=== PATIENT | male | born 1945 | race Caucasian/White ===

== ENCOUNTER → 2020-08-16 | Outpatient (CLI) | payer OTHER | END | disposition home or self-care (01) | LOC: OIH 10:49 | PROVIDERS: ATTEND Internal Medicine | DX: I10 Essential (primary) hypertension (principal) | CPT/HCPCS: 71046 ==

== ENCOUNTER → 2023-02-20 | Outpatient (CLI) | payer OTHER | END | disposition home or self-care (01) | LOC: RAH 14:02 | PROVIDERS: ATTEND Internal Medicine | DX: R41.3 Other amnesia (principal) | CPT/HCPCS: 70450 ==

== ENCOUNTER → 2023-12-23 | Outpatient (CLI) | payer OTHER | END | disposition home or self-care (01) | LOC: OIH 16:21 | PROVIDERS: ATTEND Internal Medicine Gastroenterology | DX: R05.3 Chronic cough (principal); I77.810 Thoracic aortic ectasia | CPT/HCPCS: 71046 ==

== ENCOUNTER → 2025-04-20 | Outpatient (CLI) | payer OTHER ==
--- NOTE | 2025-04-21 01:45 | HMCIMG ---
EXAM: CR Thoracic Spine, 2 View. CLINICAL HISTORY: THORACIC RADICULOPATHY COMPARISON: None provided. FINDINGS: BONES: No acute fracture or aggressively appearing osseous lesion. DISCS / DEGENERATIVE CHANGES: Diffuse multilevel degenerative changes in the form of anterior and lateral bridging osteophyte formation throughout the thoracic spine. Mild intervertebral disc space narrowing with associated endplate sclerosis in the lower thoracic spine. These findings are compatible with degenerative spondylosis. SOFT TISSUES: The paraspinal soft tissue lines are unremarkable. The visualized lungs are clear. MISCELLANEOUS: Visualization of the upper thoracic spine is limited on the lateral view by overlying structures. IMPRESSION: 1. No acute osseous injury. 2. Multilevel degenerative changes of the thoracic spine, most pronounced in the lower thoracic region. /[place]
--- NOTE | 2025-04-21 01:48 | HMCIMG ---
EXAM: CR Cervical spine, 2 or 3 View. CLINICAL HISTORY: CERVICAL RADICULOPATHY COMPARISON: None provided. FINDINGS: BONES: No acute fracture or aggressively appearing osseous lesion. DISCS/DEGENERATIVE CHANGES: There is bulky, flowing ossification along the anterior margins of C2 to C7 vertebral bodies, forming bridging bony bars over several disc spaces, consistent with diffuse idiopathic skeletal hyperostosis. The intervertebral disc heights are relatively preserved at these levels, without advanced disc space collapse. Posterior vertebral body alignment is within normal limits. SOFT TISSUES: No prevertebral soft tissue swelling. The visualized lung apices are clear. Carotid calcifications recommend carotid ultrasound. IMPRESSION: 1. 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 Carotid calcifications recommend carotid ultrasound. 2. No acute findings. /[place]
== END | disposition home or self-care (01) ==
LOC: RAH 12:40
PROVIDERS: ATTEND Internal Medicine
DX: M47.24 Other spondylosis with radiculopathy, thoracic region (principal); M48.12 Ankylosing hyperostosis [Forestier], cervical region
CPT/HCPCS: 72040; 72070

== ENCOUNTER → 2025-04-26 | Outpatient (CLI) | payer OTHER ==
--- NOTE | 2025-04-27 05:55 | HMCIMG ---
EXAM: CT Cardiac calcium scoring. CLINICAL HISTORY: CAD screening. TECHNIQUE: Thin collimated axial CT cardiac images were obtained. A CT scan is done according to ALARA (As Low As Reasonably Achievable). CONTRAST: None. COMPARISON: None provided. FINDINGS: Calcium Score: VESSEL Number of lesions Volume mm3 Equi. Mass/mg Calcium score LM 6 63.2 --.-- 82.5 LAD 13 151.1 --.-- 203.6 LCX 11 115.5 --.-- 125.9 RCA 28 478.1 --.-- 595.6 Total 58 808.0 --.-- 1007.5 IMPRESSION: The calcium score is 1007.5. This places the patient above 75th percentile in comparison to a group of patients asymptomatic for coronary artery disease with the same age and gender. This means that >75% of males aged >74 have a calcium score that is lower than the patient's. /[place]
== END | disposition home or self-care (01) ==
LOC: RAH 10:19
PROVIDERS: ATTEND Internal Medicine
DX: Z13.6 Encounter for screening for cardiovascular disorders (principal); I25.10 Atherosclerotic heart disease of native coronary artery without angina pectoris
CPT/HCPCS: 75571